=== PATIENT | female | born 1975 | race Caucasian/White ===

== ENCOUNTER → 2022-11-30 | Outpatient (CLI) | payer OTHER, SELFPAY ==
[2022-12-03 17:06] LABS: Absolute Lymphocyte Count 2.89 X10^3/uL (0.83-4.51); Absolute Neutrophil Count 4.7 X10^3/uL (2.0-7.7); Basophil# 0.07 X10^3/uL; Basophil% 0.8 % (0-1); Eosinophil# 0.35 X10^3/uL; Eosinophils% 4.1 % (0-5); Hematocrit 38.5 % (37-47); Hemoglobin 13.2 g/dL (12.0-15.0); Lymphocyte # 2.89 X10^3/ul (0.83-4.51); Lymphocyte % 33.7 % (19-41); Mean Corp Hgb Conc 34.3 g/dL (32-36); Mean Corpuscular Volume 93.4 fL (81-99); Mean Platelet Vol. 10.4 fl (6.2-12.0); Monocyte# 0.58 X10^3/uL; Monocyte% 6.8 % (0-10); NRBC Flagged by Analyzer 0 % (0-5); Neutrophil # 4.66 X10^3/uL (2.7-7.7); Neutrophil % 54.4 % (47-70); Platelet Count 243 K/mm3 (150-450); RBC Distribution Width CV 12.8 % (11.6-14.6); RBC Distribution Width SD 43.7 fl (35.1-43.9); Red Blood Count 4.12 M/mm3 (4.2-5.4); White Blood Count 8.6 K/mm3 (4.4-11.0)
[2022-12-03 17:30] LABS: Albumin, Serum 4.2 g/dL (3.2-5.0); Anion Gap 6 (5-15); BUN 9 mg/dL (7-18); BUN/Creat Ratio 12.5 RATIO (10-20); Chloride 106 mmol/L (98-107); Creatinine, Serum 0.72 mg/dL (0.55-1.02); EST Glomerular Filtration Rate 93 mL/min (>60); Est Glom Filt Rate - Afr Amer 112 mL/min (>60); Glucose 91 mg/dL (74-106); Potassium 3.9 mmol/L (3.5-5.1); Sodium Level 139 mmol/L (136-145)
[2022-12-03 18:27] LABS: Hemoglobin A1c 4.8 % (3.8-5.6)
[2022-12-03 18:54] LABS: Magnesium 2.3 mg/dL (1.6-2.6)
--- NOTE | 2022-12-07 07:13 | EKG12_ITS ---
Test Reason : PRE OP Blood Pressure : / mmHG Vent. Rate : 076 BPM Atrial Rate : 076 BPM P-R Int : 174 ms QRS Dur : 078 ms QT Int : 376 ms P-R-T Axes : 059 067 048 degrees QTc Int : 423 ms Normal sinus rhythm Low voltage QRS Septal infarct , age undetermined Abnormal ECG Confirmed by ROGELIO WORRELL, RADHA ([id number]), continuity editor PARISH ROMO ([id number]) on 12/10/2022 10:40:17 AM Referred By: PRE OP Confirmed By:RADHA MERCADO MD
[2022-12-17 06:06] LABS: Internal QC Validated? YES +Cl - CLEAR BKGD; Pregnancy, Urine Negative Negative
[2022-12-17] MEDS: Lactated Ringers 1,000 ML 15 ML IV (06:09)
[2022-12-17] MEDS: Gabapentin 600 MG Tablet PO (06:10)
[2022-12-17] MEDS: Acetaminophen 500 MG Tablet 1000 MG PO (06:10)
[2022-12-17] MEDS: Magnesium 1 GM over 15 mins IV (06:11)
[2022-12-17 06:12] VITALS: BP 132/80; PULSE 80; RESP 18; TEMP 36.9; O2SAT 100; BMI 45.1
[2022-12-17 06:50] LABS: Bedside Glucose 72 mg/dL (74-106)
== END | disposition home or self-care (01) ==
LOC: AC 12-17 05:34 → PAT 12-31 13:48
PROVIDERS: Anesthesiology; PCP Family Medicine; Referring Provider Orthopaedic Surgery; Visit Provider Orthopaedic Surgery
DX: Z01.818 Encounter for other preprocedural examination (principal); R94.31 Abnormal electrocardiogram [ECG] [EKG]
CPT/HCPCS: 36415; 80048; 81025; 82040; 82962; 83036; 83735; 85025; 87081; 93005; J7120; J3475

== ENCOUNTER → 2022-12-03 | Outpatient (CLI) | payer OTHER, SELFPAY ==
--- NOTE | 2022-12-03 15:49 | CT_ITS ---
EXAM: CT LEFT LOWER EXTREMITY WITHOUT INTRAVENOUS CONTRAST CLINICAL INDICATION: UNI PRIM OSTEOARTHRIT, LEFT KNEE TECHNIQUE: Helically acquired images were obtained of the left lower extremity without intravenous contrast. 2-D reformats were performed by the technologist. CTDIvol = ( 19.68 ) mGy, DLP = ( 1321.36 ) mGycm This CT exam was performed using one or more of the following dose reduction techniques: automated exposure control, adjustment of the mA and/or kV according to patient size, and/or use of iterative reconstruction technique. This report was created using [employer] report [employer] technology. COMPARISON: None. FINDINGS: BONES/JOINTS: Tricompartmental osteoarthrosis, worse at the medial femorotibial compartment with slight lateral subluxation of the tibia relative to the femur. Up to moderate osteoarthrosis of the left hip. Moderate degenerative changes are seen at the pubic symphysis. Enthesopathy along the calcaneus. Evidence of an old injury involving the inferior process of the medial malleolus. No acute fracture. No unusual lytic or sclerotic lesions of bone. No significant suprapatellar joint effusion. No significant tibiotalar joint effusion. SOFT TISSUES: Unremarkable. No soft tissue swelling or gas. No radiopaque foreign body. CT/Extremity Lower without Contra IMPRESSION: Preoperative planning study performed showing tricompartmental osteoarthrosis, severe at the medial femorotibial compartment. Electronically Signed: Richardson Abraham MD at 1:24 EST ,
== END | disposition home or self-care (01) ==
PROVIDERS: PCP Family Medicine; Visit Provider Orthopaedic Surgery
DX: Z01.818 Encounter for other preprocedural examination (principal); M16.12 Unilateral primary osteoarthritis, left hip; M17.12 Unilateral primary osteoarthritis, left knee
CPT/HCPCS: 73700